=== PATIENT | female | born 1945 | race Caucasian/White ===

== ENCOUNTER 2019-07-02 13:50 | Emergency (ER) | payer MEDICARE ==
--- OUTSIDE RECORDS SUMMARY | 2019-07-02 14:13 | XMS REPORT | Continuity of Care Document ---
:1945 External Reference #:[id number] Author Name Brissa Longo FNP (transmitted by agent of provider Yuko Alexander) Address [address] [place] [id number] Care Team Providers Name Role Phone Ebonie Batista PA - Medical Care Team Information [employer] Solutions Architect [phone] Problems Description No Information Available Social History Type Date Description Comments Sex Unknown Tobacco Use Start: Unknown Never Smoked Cigarettes ETOH Use Denies alcohol use Tobacco Use Start: Unknown Patient denies history of smoking Recreational Drug Use Denies Drug Use Smoking Status Reviewed: 05/27/19 Patient denies history of smoking Exercise Type/Frequency Does not exercise Allergies, Adverse Reactions, Alerts Active Allergies Reaction Severity Comments Date Codeine Phosphate 09/08/2008 Augmentin 09/08/2008 Medications Active Medications SIG Qnty Indications Ordering Date Provider Diclofenac Sodium apply 4g to 200gm M25.561 Yuko Alexander, 06/14/2018 1% affected area of MD Gel the l knee twice a day Flonase Allergy 1 spray each nare 19.8ml J30.9 Angy Cool, 12/24/2017 Relief every day M.D. 50mcg/Act Suspension Levothyroxine Sodium 2 tab daily 180tabs Yuko Alexander, except sunday 100mcg Tablets take 1 tab Arthritis Pain Relief 2 tabs per day Unknown Acetaminophen 650mg Tablets ER [place] 3 Joint Relief 2 per day Unknown With Tumeric Calcium 1000 Iu And 2 a day Unknown Vitamin D3 1200mg-25 mcg Immunizations CPT Code Status Date Vaccine Lot # [id number] Given 01/09/2019 Shingrix Zoster Vaccine (HZV), Recombinant, Subunit, Adjuvante 25529 Given 04/29/2018 Pneumovax Injection [id number] Given 01/28/2018 Influenza High Dose [id number] 84230 Given 12/24/2017 Zoster Vaccine Live Injection 26710 Given 03/13/2017 Pneumococcal Conjugate Vaccine 13 Valent For Intramuscular Use [id number] Given 03/30/2016 Influenza High Dose Vital Signs Date Vital Result Comment 04/29/2019 2:23pm BP Systolic 129 mmHg BP Diastolic 83 mmHg Body Temperature 97.5 F Heart Rate 57 /min Height 61 inches 5'1" Weight 158.00 lb BMI (Body Mass Index) 29.9 kg/m2 BSA (Body Surface Area) 1.71 m2 [place] body weight in kilograms 48 kg O2 % BldC Oximetry 98 % 04/29/2019 11:06am BP Systolic 110 mmHg BP Diastolic 78 mmHg Heart Rate 54 /min Respiratory Rate 18 /min Height 61.25 inches 5'1.25" Weight 157.00 lb BMI (Body Mass Index) 29.4 kg/m2 BSA (Body Surface Area) 1.71 m2 [place] body weight in kilograms 48 kg O2 % BldC Oximetry 98 % Results Test Acquired Date Facility Test Result H/L Range Note Urine Dipstick 04/02/2019 [facility] Inhouse Ua Clarity CLEAR Clear Ua Leuko 2+ High Negative Ua Nitrite Negative Negative Ua Urobilinogen Negative Low 0.2 - 1.0 E.U./dL Ua Protein Negative Negative Ua PH 6.0 Low 6.5-7.5 Ua Blood Negative Negative Ua Specific [place] 1.010 1.010-1.030 Ua Ketones Negative Negative Ua Bilirubin Negative Negative Ua Glucose Negative Negative Urine Culture 04/02/[address] Urine Culture URETHRAL JUAN [address] [place] [address] [phone] Quantity < 10,000 CFU/mL Laboratory test 12/31/[address] Thyroid 1.65 Normal 0.30- 4.20 2 finding 4077 [facility] Stim uIU/[place] [address] Hormone [phone] 1 M25.551 2 E03.9 Procedures Date Code Description Status 04/29/2019 64212 Debridement Nails Any Method 6 Or More Completed 04/29/2019 14960 Pare Hyperkeratotic Lesion, > 4 Completed 02/19/2019 43454 Debridement Nails Any Method 6 Or More Completed 02/19/2019 82787 Pare Hyperkeratotic Lesion, > 4 Completed 10/05/2017 [id number] Mammogram Completed 05/21/2006 99664285 Colonoscopy Completed Medical Devices Description No Information Available Encounters Type Date Location Provider Dx Diagnosis Office Visit 04/29/2019 Family Medicine Ebonie Batista PA M25.551 Pain in right hip 11:[address] E03.9 Hypothyroidism, unspecified Office Visit 04/02/2019 2:30p Family Medicine Brissa Longo, M25.551 Pain in right [address] DRY [employer]IM[employer]OW[employer] BLENDER hip R82.71 Bacteriuria Assessments Date Code Description Provider 04/29/2019 L84 Corns and callosities Bunny ZAIRA Khoury 04/29/2019 M25.551 Pain in right hip Ebonie Batista PA 04/29/2019 Q66.71 Congenital pes cavus, right foot Bunny, Peng [facility] 04/29/2019 E03.9 Hypothyroidism, unspecified Ebonie Batista PA 04/29/2019 Q66.72 Congenital pes cavus, left foot Bunny, Peng [facility] 04/29/2019 M20.5x2 Other deformities of toe(s) (acquired), left Peng HollisZAIRA foot 04/29/2019 M20.5x1 Other deformities of toe(s) (acquired), right Peng HollisCLAYTON foot 04/29/2019 M20.41 Other hammer toe(s) (acquired), right foot Bunny, ZAIRA Khoury 04/29/2019 M20.42 Other hammer toe(s) (acquired), left foot BunnyPeng novak [facility] 04/02/2019 M25.551 Pain in right hip Brissa Longo, [facility] 04/02/2019 R82.71 Bacteriuria Brissa Longo, [facility] 02/19/2019 L84 Corns and callosities Bunny ZAIRA Khoury 02/19/2019 Q66.71 Congenital pes cavus, right foot Bunny, Peng DP 02/19/2019 Q66.72 Congenital pes cavus, left foot Bunny, ZAIRA Khoury 02/19/2019 M20.5x2 Other deformities of toe(s) (acquired), left BunnyPeng novakCLAYTON foot 02/19/2019 M20.5x1 Other deformities of toe(s) (acquired), right Peng Hollis DPM foot 02/19/2019 M20.41 Other hammer toe(s) (acquired), right foot Peng Hollis DPM 02/19/2019 M20.42 Other hammer toe(s) (acquired), left foot Peng Hollis DPM Plan of Treatment Future Appointment(s):10/28/2019 11:00 am - Ebonie Batista [facility] at [facility]04/29/2019 - Peng Hollis DPML84 Corns and callositiesComments:The callus tissue was cleaned with an alcohol prep pad and pared with a sterile #15 blade on a sterile #3 handle.Q66.71 Congenital pes cavus, right footQ66.72 Congenital pes cavus, left footM20.5x2 Other deformities of toe(s) (acquired), left footM20.5x1 Other deformities of toe(s) ( acquired), right footM20.41 Other hammer toe(s) (acquired), right footM20.42 Other hammer toe(s) (acquired), left footAllComments:All the nails were trimmed in length with a sterile nail nipper. The leading edges were debrided with a nail bur and electric podiatry drill. The debris under the edges of the great toenails was debrided with a sterile curet.Follow up:Follow-up in 2 months for routine podiatric care Functional Status Functional Condition Comment Date Status Independent with all IADL's Active Mental Status Description No Information Available Referrals Description No Information Available
[2019-07-02 15:17] VITALS: BP 122/59
--- NOTE | 2019-07-02 15:41 | UC ---
Abdominal Pain Female HPI - HPI Summary HPI Summary: Pt presents with c/o sudden onset of diarrhea that began 3 days ago. Pt states that everything she eats or drinks" runs right through her". She reports that the diarrhea has been black in color. Pt started taking peptobismal after onset of symptoms with no improvement. Pt's last colonoscopy was 13 years ago. Pt denies unexplained weight loss in the last 6 months. Pt has hx of IBS. - History of Current Complaint Chief Complaint: UCGI Stated Complaint: DIARRHEA X3 DAYS Time Seen by Provider: 07/02/19 15:13 Hx Obtained From: Patient ?: No Onset/Duration: Sudden Onset, Lasting Days, Still Present Timing: Constant Severity Initially: Mild Severity Currently: Mild Pain Intensity: 0 Radiates: No Character: Colicy, Cramping Aggravating Factor(s): Food Alleviating Factor(s): Nothing Associated Signs and Symptoms: Positive: Diarrhea - Risk Factors Ectopic Risk Factor: Negative Ovarian Torsion Risk Factor: Negative Allergies/Adverse Reactions: Allergies Allergy/AdvReac Type Severity Reaction Status Date / Time MS Codeine [Codeine] Allergy Intermediate GI Upset Verified 06/02/14 13:46 MS Amoxicillin AdvReac Intermediate GI Upset Verified 06/02/14 13:47 [From Augmentin] MS Clavulanic Acid AdvReac Intermediate GI Upset Verified 06/02/14 13:47 [From Augmentin] Home Medications: Home Medications Bismuth Subsalicylate [Pepto-Bismol Max Strength] 1 dose PO ONCE 07/02/19 [ History Confirmed 07/02/19] PMH/Surg Hx/FS Hx/Imm Hx Previously Healthy: Yes - Surgical History Surgical History: Yes Surgery Procedure, Year, and Place: appy, gallbladder removed. carpal tunnel - Family History Known Family History: Positive: Cardiac Disease - Social History Occupation: Retired Lives: With Family Alcohol Use: None Substance Use Type: None Smoking Status (MU): Never Smoked Tobacco Have You Smoked in the Last Year: No - Immunization History Most Recent Influenza Vaccination: current Most Recent Pneumonia Vaccination: current Vaccination Up to Date: No Review of Systems All Other Systems Reviewed And Are Negative: Yes Constitutional: Positive: Negative Skin: Positive: Negative Eyes: Positive: Negative ENT: Positive: Negative Respiratory: Positive: Negative Cardiovascular: Positive: Negative Gastrointestinal: Positive: Negative Genitourinary: Positive: Negative Motor: Positive: Negative Neurovascular: Positive: Negative Musculoskeletal: Positive: Negative Neurological/Mental Status: Positive: Negative Psychological: Positive: Negative Is Patient Immunocompromised?: No Physical Exam Triage Information Reviewed: Yes Appearance: Well-Appearing Vital Signs: Initial Vital Signs Temp 97.4 F 07/02/19 15:14 Pulse 50 07/02/19 15:14 Resp 16 07/02/19 15:14 BP 122/59 07/02/19 15:14 Pulse Ox 100 07/02/19 15:14 Vital Signs Reviewed: Yes Eye Exam: Normal ENT Exam: Normal Dental Exam: Normal Neck exam: Normal Respiratory Exam: Normal Cardiovascular Exam: Normal Abdominal Exam: Normal Abdomen Description: Positive: Nontender Bowel Sounds: Positive: Present Musculoskeletal Exam: Normal Neurological Exam: Normal Psychological Exam: Normal Skin Exam: Normal Abd Pain Female Course/Dx - Course Course Of Treatment: I recommended that pt f/u with PCP as soon as possible. Pt has hx of polyp and has not had f/u colonoscopy in 13 years. - Differential Dx/Diagnosis Differential Diagnosis: Diverticulitis, Irritable Bowel Syndrome, Other - diarrhea Provider Diagnosis: Diarrhea Discharge ED - Sign-Out/Discharge Documenting (check all that apply): Patient Departure All imaging exams completed and their final reports reviewed: No Studies - Discharge Plan Condition: Stable Disposition: HOME Patient Education Materials: Loperamide (By mouth), Acute Diarrhea (ED) Referrals: Ebonie Batista PA [Primary Care Provider] - As Soon As Possible - Billing Disposition and Condition Condition: STABLE Disposition: Home
== END 2019-07-02 15:50 | disposition home or self-care (01) ==
LOC: UCCORT 13:50
DX: R19.7 Diarrhea, unspecified (principal); Z88.5 Allergy status to narcotic agent; Z88.0 Allergy status to penicillin
CPT/HCPCS: 99201; G0463